=== PATIENT | female | born 1990 | race Hispanic/Latino ===

== ENCOUNTER 2019-10-05 05:07 | Inpatient (IN) | payer MEDICAID, OTHER ==
[2019-10-05] VITALS (17 sets, daily range): BP systolic 103–133; BP diastolic 28–86
[~2019-10-05] VITALS: Ht 157.5 cm; Wt 102.5 kg
[2019-10-05] MEDS ORDERED: CEFAZOLIN SODIUM 1 GM VIAL IVP PRN (05:45)
[2019-10-05] MEDS ORDERED: OXYTOCIN-LR 20 UNITS/1000 ML 1,000 ML IV SCH (05:45)
[2019-10-05] MEDS ORDERED: LACTATED RINGERS 1000ML 1,000 ML IV SCH (05:45)
[2019-10-05 06:57] LABS: MEAN CORPUSCULAR HEMOGLOBIN 27.3 pg (27.0-33.0); MEAN CORPUSCULAR HGB CONC 32.8 g/dL (32.0-36.0); MEAN CORPUSCULAR VOLUME 83.3 fL (79-99); PLATELET COUNT (AUTO) 276 K/uL (130-400); RED BLOOD CELL COUNT(AUTO) 4.32 MIL/uL (4.00-5.50); RED CELL DISTRIBUTION WIDTH 14.2 % (11.0-15.5); WHITE BLOOD COUNT (AUTO) 10.1 K/uL (4.8-10.8)
[2019-10-05] MEDS ORDERED: ONDANSETRON HCL 4 MG/2 ML VIAL ONE (07:19)
[2019-10-05] MEDS ORDERED: OXYTOCIN 10 UNIT/1ML 10ML VIAL ONE (07:19)
[2019-10-05] MEDS ORDERED: DURAMORPH PF1 MG/ML 10ML AMP IV ONE (07:19)
[2019-10-05] MEDS ORDERED: FENTANYL CITRATE PF 50 MCG/1 ML 2ML VIAL ONE (07:20)
[2019-10-05] MEDS ORDERED: CALDOLOR 800MG+NS 250ML 250 ML IV ONE (07:50)
[2019-10-05] MEDS ORDERED: CEFAZOLIN SODIUM 1 GM VIAL IVP ONE (08:05)
[2019-10-05] MEDS ORDERED: PHENYLEPHRINE HCL 10 MG/ML 1ML VIAL IV ONE (08:19)
[2019-10-05] MEDS ORDERED: SODIUM CHLORIDE 0.9% 10 ML VIAL IVP PRN (09:45)
[2019-10-05] MEDS ORDERED: MEPERIDINE-PF 75 MG/ML SYG IM PRN (09:45)
[2019-10-05] MEDS ORDERED: OXYTOCIN-LR 20 UNITS/1000 ML 1,000 ML IV PRN (09:45)
[2019-10-05] MEDS ORDERED: PROMETHAZINE HCL 25 MG/ML 1ML AMPULE IM PRN (09:45)
[2019-10-05] MEDS ORDERED: PREN-154 PO (10:16)
[2019-10-05 13:42] LABS: RAPID PLASMA REAGIN NONREACTIVE (NONREACTIVE)
[2019-10-05] MEDS ORDERED: MEPERIDINE-PF 100 MG/ML SYG ONE (15:10)
[2019-10-05] MEDS: CALDOLOR 800MG+NS 250ML 250 ML IV SCH (17:32)
[2019-10-05] MEDS: DEXTROSE 5 %-0.45 % NACL 1,000 ML IV PRN (20:38)
--- NOTE | 2019-10-06 00:30 | NUR ---
MINDY CARE DONE, SCANT LOCHIA NOTED.
[2019-10-06] MEDS: CALDOLOR 800MG+NS 250ML 250 ML IV SCH (01:22)
[2019-10-06 03:01] VITALS: BP 117/60
[2019-10-06] MEDS: DEXTROSE 5 %-0.45 % NACL 1,000 ML IV PRN (05:23)
--- NOTE | 2019-10-06 06:30 | NUR ---
MING SALAZAR DC'D; MINDY CARE DONE. PT. INST TO CALL FOR ASSIST BEFORE GETTING OUT OF BED, VERBALIZED UNDERSTANDING. Addendum: 10/06/19 at 0721 by IKE WING RN RN Amended: Links added.
[2019-10-06 07:11] LABS: HEPATITIS Bs ANTIGEN SCREEN P Negative (Negative)
[2019-10-06 07:12] LABS: HEMATOCRIT 29.9 % (36-48); MEAN CORPUSCULAR HGB CONC 33.1 g/dL (32.0-36.0); MEAN CORPUSCULAR VOLUME 84.7 fL (79-99); PLATELET COUNT (AUTO) 209 K/uL (130-400); RED BLOOD CELL COUNT(AUTO) 3.53 MIL/uL (4.00-5.50); RED CELL DISTRIBUTION WIDTH 14.6 % (11.0-15.5); WHITE BLOOD COUNT (AUTO) 9.5 K/uL (4.8-10.8)
[2019-10-06 07:45] VITALS: BP 119/58
[2019-10-06] MEDS ORDERED: LANOLIN 30GM OINTMENT TP PRN (07:45)
[2019-10-06] MEDS ORDERED: ACETAMINOPHEN EXTRA STRENGTH 500 MG TABLET PO PRN (07:45)
[2019-10-06] MEDS ORDERED: HYDROCODONE/ACETAMINOPHEN 5/325 MG TAB PO PRN (07:45)
[2019-10-06] MEDS ORDERED: BISACODYL 10 MG SUPP.RECT RC PRN (07:45)
[2019-10-06] MEDS ORDERED: DIPH,PERTUSS(ACELL),TET VAC/PF 0.5 ML VIAL IM SCH (07:45)
[2019-10-06] MEDS ORDERED: IBUPROFEN 800 MG TAB ONE (08:32)
[2019-10-06] MEDS: SIMETHICONE 80 MG TAB.CHEW PO PRN ×4 (08:35→20:21)
[2019-10-06] MEDS: DOCUSATE SODIUM 100 MG CAP PO SCH ×2 (08:35→20:21)
[2019-10-06] MEDS: IBUPROFEN 800 MG TAB PO SCH ×2 (08:36→18:15)
[2019-10-06 11:59] VITALS: BP 108/57
[2019-10-06] MEDS: ACETAMINOPHEN-CODEINE 300/30MG TAB PO PRN (14:09)
[2019-10-06 16:32] VITALS: BP 131/61
[2019-10-06 19:36] VITALS: BP 101/48
[2019-10-06 23:27] VITALS: BP 113/56
[2019-10-07] MEDS: IBUPROFEN 800 MG TAB PO SCH ×2 (01:48→09:01)
[2019-10-07 03:24] VITALS: BP 120/58
[2019-10-07 07:52] VITALS: BP 126/77
[2019-10-07] MEDS: DOCUSATE SODIUM 100 MG CAP PO SCH (09:01)
[2019-10-07] MEDS: SIMETHICONE 80 MG TAB.CHEW PO PRN (09:02)
[2019-10-07] MEDS: ACETAMINOPHEN-CODEINE 300/30MG TAB PO PRN (09:02)
--- NOTE | 2019-10-07 10:30 | NUR ---
DISCHARGE INSTRUCTIONS GIVEN AND REINFORCED CARE OF INCISION. VERBALIZED UNDERSTANDING INSTRUCTIONS GIVERN. SCRIPT GIVEN TO PATIENT AND DOSAGE AND FREQUENCY EXPLAINED. PATIENT STABLE AND DENIES PAIN.
--- NOTE | 2019-10-07 11:35 | NUR ---
PATIENT WAS TAKEN VIA W/C TO FAMILY VEHICLE AND PATIENT CARRIED BABY IN ARMS. BOTH MOM AND BABY STABLE AND WERE DISCHARGED TO HER FAMILY.,
== END 2019-10-07 11:35 | disposition home or self-care (01) | DRG 788 ==
LOC: LDH 05:07 → WSH 10:12
PROVIDERS: ADMIT Obstetrics & Gynecology; ATTEND Obstetrics & Gynecology
PROC: 3E0234Z Introduction of Serum, Toxoid and Vaccine into Muscle, Percutaneous Approach (ICD-10-PCS; 2019-10-05)
PROC: 10D00Z1 Extraction of Products of Conception, Low, Open Approach (ICD-10-PCS; principal; 2019-10-05 07:30)
DX: O34.211 Maternal care for low transverse scar from previous cesarean delivery (principal); Z3A.39 39 weeks gestation of pregnancy; Z37.0 Single live birth; O99.214 Obesity complicating childbirth; Z23 Encounter for immunization; E66.9 Obesity, unspecified
CPT/HCPCS: 36415; 59510; 85027; 86592; 86701; 86850; 86900; 86901; 87340; 87390; A4344; G0378; J0690; J1741; J2175; J2274; J2370; J2405; J2550; J2590; J3010; J7120